=== PATIENT | male | born 1945 | race Caucasian/White ===

== ENCOUNTER 2016-07-14 10:58 | Emergency (ER) | payer MEDICARE, BC, OTHER ==
[~2016-07-14] VITALS: Ht 182.9 cm; Wt 95.0 kg
[~2016-07-14 10:58] MED LIST: CAL-TAB4 PO; COLA100C3 PO; COMMODE 3-IN-11 MIS; GETGO ROLLING W1 MI1; HYDR-3366 PO; MULT-65 PO; TAMS5CAP PO; WALKER WHEELS/F1 MIS; XARE10TA PO
[2016-07-14 11:02] VITALS: BP 149/96; PULSE 85; RESP 16; TEMP 97.8; O2SAT 93
[2016-07-14] MEDS ORDERED: [UNRECOGNIZED DRUG - CODE] TOPICAL (11:22)
[2016-07-14] MEDS ORDERED: [UNRECOGNIZED DRUG - OTHER] TOPICAL (11:22)
[2016-07-14] MEDS ORDERED: CLOB0.055 TOPICAL (11:22)
--- NOTE | 2016-07-14 11:59 | PD ---
HPI Chief Complaint: Skin Problem Time Seen by Provider: 11:45 Travel History International Travel<30 days: No Contact w/Intl Traveler<30days: No Traveled to known affect area: No History of Present Illness HPI 70-year-old male presents to the ED for evaluation of approximately 24-hour history of pruritic rash over the entire body. Patient states that the rash started about a week ago with some areas on the foot. He thought that this might be an outbreak of psoriasis. He was treating accordingly when he noticed it spread to both feet. He states that yesterday he got in the pool because the water was cool and soothed his itch. States that overnight he developed pruritic rash over the entire body. He denies fevers or chills, abdominal pain , nausea or vomiting. Denies new grooming products, detergents, exposures, medications. Denies recent history of sore throat or cold/flu symptoms. He takes no daily medications. NKDA. PFSH Past Medical History Hx Anticoagulant Therapy: No Arthritis: Yes Asthma: No Autoimmune Disease: No Anxiety: No Depression: No Heart Rhythm Problems: No Cancer: No Cardiovascular Problems: Yes (HTN) High Cholesterol: No Chemotherapy: No Chest Pain: No Congestive Heart Failure: No COPD: No Cerebrovascular Accident: No Diabetes: No Diminished Hearing: No Endocrine: No Gastrointestinal Disorders: Yes GERD: Yes Genitourinary: Yes Hiatal Hernia: No Hypertension: Yes Immune Disorder: No Kidney Stones: Yes Musculoskeletal: Yes Neurologic: Yes Psychiatric: No Reproductive: No Respiratory: No Integumentary: Yes (psoriasis) Immunizations Current: Yes Migraines: No Radiation Therapy: No Renal Failure: No Seizures: No Sickle Cell Disease: No Sleep Apnea: No Thyroid Disease: No Ulcer: No Tetanus Vaccination: > 5 Years Past Surgical History Abdominal Surgery: No AICD: No Arteriovenous Shunt: No Cardiac Surgery: No Cholecystectomy: Yes (02/14) Ear Surgery: No Endocrine Surgery: No Eye Surgery: No Genitourinary Surgery: No Gynecologic Surgery: No Insulin Pump: No Joint Replacement: No Oral Surgery: No Pacemaker: No Thoracic Surgery: No Other Surgery: Yes (COLONOSCOPY) Social History Alcohol Use: Yes (occas) Tobacco Use: No Substance Use: No Allergies-Medications (Allergen,Severity, Reaction): Coded Allergies: No Known Allergies (Verified , 07/14/16) Reported Meds & Prescriptions Reported Meds & Active Scripts Active Vistaril (Hydroxyzine Pamoate) 25 Mg Cap 25 Mg PO TID PRN Prednisone 20 Mg Tab 40 Mg PO DAILY 3 Days Take 40 mg (2 tablets) daily for 5 days Penicillin Vk (Penicillin V Potassium) 250 Mg Tab 250 Mg PO Q6H 14 Days Michi-Citrate Plus Vitamin D (Calcium Citrate-Vitamin D) 250-100 Mg-Unit Tab 1 Tab PO BID Multi-Vitamin Daily (Multiple Vitamin) 1 Tab Tab 1 Tab PO DAILY Reported Clobetasol Topical (Clobetasol Propionate) 0.05% Cream 1 Applic TOPICAL BID Betamethasone Valerate 0.1 % Oin 1 Applic TOPICAL DAILY [fluconamide] 0.5 % TOPICAL BID Review of Systems Except as stated in HPI: all other systems reviewed are Neg Physical Exam Narrative GENERAL: Well-nourished, well-developed tanned white male in no acute distress. SKIN: Focused skin assessment warm/dry. Large silvery plaques on bilateral knees and elbows, consistent with psoriasis. There are numerous, small, inflammatory, scaly plaques on the trunk and extremities bilaterally. Consistent with guttate psoriasis. HEAD: Normocephalic. EYES: No scleral icterus. No injection or drainage. NECK: Supple, trachea midline. No JVD or lymphadenopathy. ENT: Pearly joseph tympanic members bilaterally. Oropharynx without erythema, edema or exudates. CARDIOVASCULAR: Regular rate and rhythm without murmurs, gallops, or rubs. RESPIRATORY: Breath sounds equal bilaterally. No accessory muscle use. GASTROINTESTINAL: Abdomen soft, non-tender, nondistended. MUSCULOSKELETAL: No cyanosis, or edema. BACK: Nontender without obvious deformity. No CVA tenderness. Data Data Last Documented VS Vital Signs Date Time Temp Pulse Resp B/P Pulse Ox O2 Delivery O2 Flow Rate FiO2 07/14/16 11:02 97.8 85 16 149/96 93 Orders Diphenhydramine (Benadryl) (07/14/16 12:00) Dexamethasone Inj (Decadron Inj) (07/14/16 12:00) MDM Medical Decision Making Medical Screen Exam Complete: Yes Emergency Medical Condition: Yes Differential Diagnosis Psoriasis versus guttate psoriasis versus tinea corporis versus pityriasis rosea versus other Narrative Course 70-year-old male presents to the ED for evaluation of approximately 24-hour history of pruritic rash over the entire body. Patient states that the rash started about a week ago with some areas on the foot. He thought that this might be an outbreak of psoriasis. States that overnight he developed pruritic rash over the entire body. He denies fevers or chills, abdominal pain, nausea or vomiting. Denies new grooming products, detergents, exposures, medications. Denies recent history of sore throat or cold/flu symptoms. Vitals reviewed. Physical exam consistent with cachectic psoriasis. Patient was administered by mouth Benadryl and IM Decadron. He is prescribed Pen-Vee K 250 mg 4 times a day 10 days, Vistaril 3 times a day when necessary for itching, oral steroids to begin tomorrow. He is instructed to continue to expose this affected skin to sun, take medications as prescribed, follow up with the torpedo worker. He indicated understanding of instructions and was agreeable to the care plan. He is stable and discharged home. Diagnosis Primary Impression: Guttate psoriasis Referrals: Learning Support Specialist Patient Instructions: General Instructions, Psoriasis (ED) Additional Instructions: Rest, hydrate. Get plenty of sun which will reduce the rash. Begin oral steroids tomorrow. Take all antibiotics as prescribed, even if his symptom resolved. Vistaril up to 3 times a day as needed for itching. Vistaril may cause drowsiness. As an alternative to Vistaril you may take Benadryl as directed on the bottle, as needed for itching symptoms. Follow-up with the torpedo worker. Return to the ED for any urgent or emergent medical condition. Med/Other Pt SpecificInfo: Prescription(s) given Scripts Hydroxyzine Pamoate (Vistaril)25 Mg Cap25 Mg PO TID PRN (ITCHING) #15 CAP Ref 0 Prov:Alton Johnson MD 07/14/16 Prednisone 20 Mg Tab40 Mg PO DAILY 3 Days Ref 0 Take 40 mg (2 tablets) daily for 5 days Prov:Alton Johnson MD 07/14/16 Penicillin V Potassium (Penicillin Vk)250 Mg Icc457 Mg PO Q6H 14 Days Ref 0 Prov:Alton Johnson MD 07/14/16 Disposition: 01 DISCHARGE HOME Condition: Stable Debra Galeas Jul 14, 2016 11:59
[2016-07-14] MEDS ORDERED: diphenhydrAMINE HCL 50 MG CAP PO ONE (12:00)
[2016-07-14] MEDS ORDERED: DEXAMETHASONE SOD PHOS 4 MG/ML VIAL IM ONE (12:00)
[2016-07-14] MEDS ORDERED: PRED20 PO (12:02)
[2016-07-14] MEDS ORDERED: VIST25CA PO (12:02)
[2016-07-14] MEDS ORDERED: PENI250T59 PO (12:02)
--- NOTE | 2016-07-14 12:03 | PD ---
Physical Exam Date Seen by Provider: Jul 14, 2016 Time Seen by Provider: 12:01 Narrative 70-year-old male came to the emergency room with history of diffuse rash that is progressively worsening over past 2 days. The rash is very itchy as per the patient. Patient does have history of psoriasis. He's been seen by the PA and I'm supervising her. She asked me to come and take a look at the rash and possible diagnosis. The rash to me looks like guttate psoriasis. I educated the PA regarding the pathology and then the treatment. Patient will get a burst dose steroids here and then a prescription to go home with. He will get Atarax for his pruritus. Also UV radiation is much recommended for the rash to subside. There has been talk in up-to-date literature about strep being the initial trigger for this and patient will be treated with Pen-Vee since he is not allergic to it. He will be able to go home. Data Data Last Documented VS Vital Signs Date Time Temp Pulse Resp B/P Pulse Ox O2 Delivery O2 Flow Rate FiO2 07/14/16 11:02 97.8 85 16 149/96 93 Orders Diphenhydramine (Benadryl) (07/14/16 12:00) Dexamethasone Inj (Decadron Inj) (07/14/16 12:00) MDM Supervised Visit with MILLY: Yes Diagnosis Primary Impression: Guttate psoriasis Referrals: Carbon Sequestration Plant Manager Patient Instructions: General Instructions, Psoriasis (ED) Additional Instruction: Rest, hydrate. Get plenty of sun which will reduce the rash. Scripts Hydroxyzine Pamoate (Vistaril)25 Mg Cap25 Mg PO TID PRN (ITCHING) #15 CAP Ref 0 Prov:Alton Johnson MD 07/14/16 Prednisone 20 Mg Tab40 Mg PO DAILY 3 Days Ref 0 Take 40 mg (2 tablets) daily for 5 days Prov:Alton Johnson MD 07/14/16 Penicillin V Potassium (Penicillin Vk)250 Mg [id number] Mg PO Q6H 14 Days Ref 0 Prov:Alton Johnson MD 07/14/16 Disposition: 01 DISCHARGE HOME Condition: Stable Alton Johnson MD Jul 14, 2016 12:03
== END 2016-07-14 12:15 | disposition home or self-care (01) ==
LOC: PHEFT 10:58
DX: L40.4 Guttate psoriasis (principal); L29.9 Pruritus, unspecified; I10 Essential (primary) hypertension; Z87.39 Personal history of other diseases of the musculoskeletal system and connective tissue; Z86.79 Personal history of other diseases of the circulatory system; Z87.19 Personal history of other diseases of the digestive system; Z87.448 Personal history of other diseases of urinary system; Z86.69 Personal history of other diseases of the nervous system and sense organs; Z87.2 Personal history of diseases of the skin and subcutaneous tissue
CPT/HCPCS: 96372; 99282; J1100; Q0163